=== PATIENT | female | born 1955 | race Caucasian/White ===

== ENCOUNTER 2018-09-15 15:59 | Emergency (ER) | payer OTHER ==
[~2018-09-15] VITALS: Ht 165.1 cm; Wt 90.3 kg
--- NOTE | 2018-09-15 16:10 | NUR ---
PT BIB SELF. COMP OF "HAVING ITCHING B L L E AND PERINEAL AREAS" NO SOB NOTED. NO ACUTE DISTRESS AT THIS TIME. PT AMBULATORY W.STEADY GAIT. AWAITING MD MONTIEL.
[2018-09-15] MEDS ORDERED: CLOTRIMAZOLE 1% 15 GM TUBE TP STA (17:32)
--- NOTE | 2018-09-15 19:23 | NUR ---
ENDORSEMENT REC'D FROM MALI PRESTON FOR RUT
--- NOTE | 2018-09-15 20:02 | NUR ---
PAPER SCRUB TOP AND PANTS PROVIDED TO PT
--- NOTE | 2018-09-15 21:45 | NUR ---
Patient discharged WITH TAXI VOUCHER TO [facility] [employer] PRISON in stable condition. Written and verbal after care instructions given. Patient verbalizes understanding of instruction.
[2018-09-15 22:31] VITALS: BP 132/76
== END 2018-09-15 22:31 | disposition home or self-care (01) ==
LOC: ER 16:08
DX: B36.8 Other specified superficial mycoses (principal); F20.9 Schizophrenia, unspecified; F31.9 Bipolar disorder, unspecified; Z59.0 Homelessness
CPT/HCPCS: 99283; A4606; Z7610